=== PATIENT | female | born 1955 | race Caucasian/White ===

== ENCOUNTER 2016-07-31 22:19 | Emergency (ER) | payer MEDICARE, BC ==
[~2016-07-31] VITALS: Ht 157.5 cm; Wt 70.5 kg
[2016-07-31] MEDS ORDERED: IBUPROFEN 600 MG TAB PO ONE (22:30)
[2016-07-31 22:33] VITALS: Ht 157.5 cm; Wt 70.5 kg
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
[2016-07-31] MEDS ORDERED: AMLO1CAP2 PO (23:19)
[2016-07-31] MEDS ORDERED: METO100T13 PO (23:20)
[2016-07-31] MEDS ORDERED: SYN75 PO (23:20)
[2016-07-31] MEDS ORDERED: PRED2TAB PO (23:22)
[2016-07-31] MEDS ORDERED: HYDR200T5 PO (23:23)
[2016-07-31] MEDS ORDERED: IBUP400T22 PO (23:32)
[2016-07-31 23:39] VITALS: BP 152/76; PULSE 75; RESP 16; TEMP 98.6
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
== END 2016-07-31 23:39 | disposition home or self-care (01) ==
LOC: E/R 22:19
DX: S20.219A Contusion of unspecified front wall of thorax, initial encounter (principal); I10 Essential (primary) hypertension; V49.50XA Passenger injured in collision with unspecified motor vehicles in traffic accident, initial encounter
CPT/HCPCS: 71020; 71120; 84484; 93005